=== PATIENT | female | born 1925 | race Caucasian/White ===

== ENCOUNTER 2017-04-24 17:08 | Inpatient (IN) | payer MEDICARE, BC ==
[~2017-04-24] VITALS: Ht 165.1 cm; Wt 61.2 kg
[~2017-04-24 17:08] MED LIST: ASPIRIN E.C. 8181 MG PO; ELIQUIS 5MG PO; GLUCOTROL XL2.5 MG PO; NORCO 325 MG-51 TAB PO; PACERONE200 MG PO; PRAVACHOL 20MG20 MG PO; SYNTHROID0.075 MG/T PO; TOPROL XL 25MG25 MG PO; ZOLOFT 50MG50 MG PO
[2017-04-24 19:00] VITALS: BP 122/58; PULSE 61; TEMP 97.8
[2017-04-24] MEDS ORDERED: CORDARONE200 MG/TAB PO (23:25)
[2017-04-24] MEDS ORDERED: MIRALAX PA17 GM/Dose PO (23:28)
[2017-04-24] MEDS ORDERED: TYLENOL 500MG500 MG PO (23:29)
[2017-04-24] MEDS ORDERED: ULTRAM 50MG TAB50 MG PO (23:30)
[2017-04-25] VITALS (7 sets, daily range): BP systolic 120–127; BP diastolic 43–65; PULSE 62–74; TEMP 97.7–98.9
[2017-04-25 00:37] LABS: BASO % 0.5 % (0.0-2.0); EOS # 0.2 (0.0-0.7); GRAN # 5.1 (1.4-6.5); GRAN % 65.5 % (42.2-75.2); LYMPH # 1.7 (1.2-3.4); LYMPH % 21.2 % (20.0-51.0); MEAN CELL VOLUME 92 fl (80.0-100.0); MEAN CORPUSCULAR HGB CONC 31 g/dl (33.0-37.0); MEAN PLATELET VOLUME 9.7 fl (7.4-10.4); MONO # 0.8 (0.1-0.6); MONO % 10.4 % (1.7-9.3); PLATELET COUNT 155 K/mm3 (130-400); RED BLOOD COUNT 3.52 M/mm3 (4.10-5.30); WHITE BLOOD COUNT 7.9 K/mm3 (4.8-10.8)
[2017-04-25 00:38] LABS: HEMATOCRIT 32.4 % (37.0-47.0); HEMOGLOBIN 10.1 g/dl (12.5-16.0); MEAN CORPUSCULAR HEMOGLOBIN 29 pg (27.0-31.0)
[2017-04-25 00:42] LABS: INR 1.2 (0.8-3.0); PROTHROMBIN TIME 13.3 SECONDS (9.7-12.8)
[2017-04-25 00:48] LABS: ALBUMIN 3.5 gm/dL (3.5-5.0); BILIRUBIN,TOTAL 0.9 mg/dL (0.0-1.0); CALCIUM 8.6 mg/dL (8.4-10.2); CREATININE, serum 0.7 mg/dL (0.52-1.25); TOTAL PROTEIN 5.8 gm/dL (6.4-8.2)
[2017-04-25 00:55] LABS: PRE ALBUMIN 18.1 mg/dL (17.6-36.0)
[2017-04-25 01:18] LABS: COLLECTION METHOD CATHETER
[2017-04-25 01:27] LABS: MUCOUS Present /lpf; PH 5 (5-8); URINE APPEARANCE Cloudy; URINE BACTERIA None Seen /hpf; URINE BILIRUBIN Negative (NEGATIVE); URINE BLOOD 3+ (NEGATIVE); URINE COLOR Yellow; URINE GLUCOSE Negative (NEGATIVE); URINE KETONE Trace (NEGATIVE); URINE LEUKOCYTE ESTERASE Trace (NEGATIVE); URINE PROTEIN(semi-quant) 2+ (NEGATIVE); URINE RBC >50 /hpf; URINE WBC 20-50 /hpf
[2017-04-26] VITALS (11 sets, daily range): BP systolic 110–144; BP diastolic 44–67; PULSE 53–74; TEMP 98–99.4
[2017-04-26 07:04] LABS: BASO % 0.5 % (0.0-2.0); EOS # 0.4 (0.0-0.7); EOS % 5.8 % (0-4.0); GRAN # 3.5 (1.4-6.5); GRAN % 53.5 % (42.2-75.2); MEAN CELL VOLUME 93 fl (80.0-100.0); MEAN CORPUSCULAR HGB CONC 31 g/dl (33.0-37.0); MEAN PLATELET VOLUME 11.6 fl (7.4-10.4); MONO # 0.6 (0.1-0.6); MONO % 9.7 % (1.7-9.3); PLATELET COUNT 59 K/mm3 (130-400); WHITE BLOOD COUNT 6.5 K/mm3 (4.8-10.8)
[2017-04-26 07:06] LABS: HEMATOCRIT 28.8 % (37.0-47.0); MEAN CORPUSCULAR HEMOGLOBIN 29 pg (27.0-31.0)
[2017-04-26 07:16] LABS: CALCIUM 8.3 mg/dL (8.4-10.2); CREATININE, serum 0.63 mg/dL (0.52-1.25); POTASSIUM 3.7 mmol/L (3.4-5.0)
[2017-04-26 18:52] LABS: MEAN CELL VOLUME 95 fl (80.0-100.0); MEAN CORPUSCULAR HGB CONC 31 g/dl (33.0-37.0); MEAN PLATELET VOLUME 11.4 fl (7.4-10.4); PLATELET COUNT 114 K/mm3 (130-400); RED BLOOD COUNT 2.76 M/mm3 (4.10-5.30); WHITE BLOOD COUNT 11.1 K/mm3 (4.8-10.8)
[2017-04-26 18:54] LABS: HEMATOCRIT 26.1 % (37.0-47.0); HEMOGLOBIN 8.1 g/dl (12.5-16.0); MEAN CORPUSCULAR HEMOGLOBIN 29 pg (27.0-31.0)
[2017-04-27] VITALS (102 sets, daily range): BP systolic 127–177; BP diastolic 35–81; PULSE 51–107; TEMP 97.4–103; O2SAT 92–99
[2017-04-27 01:02] LABS: MEAN CELL VOLUME 92 fl (80.0-100.0); MEAN CORPUSCULAR HGB CONC 32 g/dl (33.0-37.0); MEAN PLATELET VOLUME 10.5 fl (7.4-10.4); PLATELET COUNT 166 K/mm3 (130-400); RED BLOOD COUNT 2.84 M/mm3 (4.10-5.30); WHITE BLOOD COUNT 8.5 K/mm3 (4.8-10.8)
[2017-04-27 01:03] LABS: HEMATOCRIT 26.1 % (37.0-47.0); HEMOGLOBIN 8.3 g/dl (12.5-16.0); MEAN CORPUSCULAR HEMOGLOBIN 29 pg (27.0-31.0)
[2017-04-27 06:23] LABS: BASO % 0.3 % (0.0-2.0); EOS # 0.2 (0.0-0.7); EOS % 2.4 % (0-4.0); GRAN # 6.4 (1.4-6.5); GRAN % 73.3 % (42.2-75.2); LYMPH # 1.4 (1.2-3.4); MEAN CELL VOLUME 93 fl (80.0-100.0); MEAN CORPUSCULAR HGB CONC 31 g/dl (33.0-37.0); MEAN PLATELET VOLUME 10.7 fl (7.4-10.4); MONO # 0.7 (0.1-0.6); MONO % 7.4 % (1.7-9.3); RED BLOOD COUNT 2.53 M/mm3 (4.10-5.30); WHITE BLOOD COUNT 8.8 K/mm3 (4.8-10.8)
[2017-04-27 06:27] LABS: HEMATOCRIT 23.6 % (37.0-47.0); HEMOGLOBIN 7.3 g/dl (12.5-16.0); MEAN CORPUSCULAR HEMOGLOBIN 29 pg (27.0-31.0)
[2017-04-27 06:39] LABS: CALCIUM 8.5 mg/dL (8.4-10.2); CREATININE, serum 0.62 mg/dL (0.52-1.25); POTASSIUM 3.5 mmol/L (3.4-5.0)
[2017-04-27 09:13] LABS: PLATELET COUNT 202 K/mm3 (130-400)
[2017-04-27 13:24] LABS: MEAN CELL VOLUME 93 fl (80.0-100.0); MEAN CORPUSCULAR HGB CONC 32 g/dl (33.0-37.0); MEAN PLATELET VOLUME 10.9 fl (7.4-10.4); PLATELET COUNT 147 K/mm3 (130-400); RED BLOOD COUNT 2.71 M/mm3 (4.10-5.30); WHITE BLOOD COUNT 7.4 K/mm3 (4.8-10.8)
[2017-04-27 13:27] LABS: HEMATOCRIT 25.2 % (37.0-47.0); MEAN CORPUSCULAR HEMOGLOBIN 30 pg (27.0-31.0)
[2017-04-27 20:38] LABS: BASO % 0.4 % (0.0-2.0); EOS # 0.1 (0.0-0.7); EOS % 0.9 % (0-4.0); GRAN # 7.7 (1.4-6.5); GRAN % 75.3 % (42.2-75.2); LYMPH # 1.3 (1.2-3.4); LYMPH % 13.1 % (20.0-51.0); MEAN CELL VOLUME 92 fl (80.0-100.0); MEAN CORPUSCULAR HGB CONC 32 g/dl (33.0-37.0); MEAN PLATELET VOLUME 10.8 fl (7.4-10.4); MONO % 9.9 % (1.7-9.3); WHITE BLOOD COUNT 10.2 K/mm3 (4.8-10.8)
[2017-04-27 20:41] LABS: HEMATOCRIT 35.7 % (37.0-47.0); HEMOGLOBIN 11.3 g/dl (12.5-16.0); MEAN CORPUSCULAR HEMOGLOBIN 29 pg (27.0-31.0); PLATELET COUNT 253 K/mm3 (130-400)
[2017-04-27 20:44] LABS: ARTERIAL BLD GAS O2 SATURATION 90.3 % (92-100); ARTERIAL BLD GAS TCO2 CT 22.7; ARTERIAL BLOOD GAS BASE EXCESS -1.8 (-2-2); ARTERIAL BLOOD GAS HCO3 21.7 meq/L (22-26); ARTERIAL BLOOD GAS pH 7.44 (7.35-7.45); OXYHEMOGLOBIN 89.1 %
[2017-04-27 20:45] LABS: ALLEN TEST YES; ALLENS TEST RESULT PASS; ATS? YES
[2017-04-27 21:10] LABS: INR 1.2 (0.8-3.0); PROTHROMBIN TIME 13.4 SECONDS (9.7-12.8)
[2017-04-27 22:07] LABS: ALBUMIN 3.3 gm/dL (3.5-5.0); BILIRUBIN,TOTAL 1.4 mg/dL (0.0-1.0); CALCIUM 8.2 mg/dL (8.4-10.2); CREATININE, serum 0.68 mg/dL (0.52-1.25); POTASSIUM 3.9 mmol/L (3.4-5.0); TOTAL PROTEIN 6.1 gm/dL (6.4-8.2)
[2017-04-27 22:19] LABS: BILIRUBIN UNCONJUGATED 0.9 mg/dL (0.0-1.1); BILIRUBIN,DIRECT 0.5 mg/dL (0.0-0.4)
[2017-04-27 22:59] LABS: ALLEN TEST YES; ALLENS TEST RESULT PASS; ARTERIAL BLD GAS O2 SATURATION 95.6 % (92-100); ARTERIAL BLD GAS TCO2 CT 24.2; ARTERIAL BLOOD GAS BASE EXCESS -0.6 (-2-2); ARTERIAL BLOOD GAS HCO3 23.1 meq/L (22-26); ARTERIAL BLOOD GAS PO2 80.5 mmHg (80-100); ARTERIAL BLOOD GAS pH 7.44 (7.35-7.45); ATS? YES; OXYHEMOGLOBIN 94.5 %
[2017-04-28] VITALS (509 sets, daily range): BP systolic 108–142; BP diastolic 38–58; PULSE 62–70; TEMP 98–99; O2SAT 73–99
[2017-04-28 03:31] LABS: COLLECTION METHOD CATHETER
[2017-04-28 03:42] LABS: MUCOUS Present /lpf; PH 5 (5-8); SQUAMOUS EPITHELIAL None Seen /hpf; URINE APPEARANCE Clear; URINE BACTERIA None Seen /hpf; URINE BILIRUBIN Negative (NEGATIVE); URINE BLOOD 2+ (NEGATIVE); URINE COLOR Yellow; URINE GLUCOSE 1+ (NEGATIVE); URINE KETONE 1+ (NEGATIVE); URINE LEUKOCYTE ESTERASE Negative (NEGATIVE); URINE PROTEIN(semi-quant) 1+ (NEGATIVE); URINE UROBILINOGEN Negative (NEGATIVE); URINE WBC 0-2 /hpf
[2017-04-28 06:12] LABS: BASO % 0.2 % (0.0-2.0); GRAN # 7.2 (1.4-6.5); GRAN % 78.1 % (42.2-75.2); LYMPH # 0.9 (1.2-3.4); MEAN CELL VOLUME 88 fl (80.0-100.0); MEAN CORPUSCULAR HGB CONC 32 g/dl (33.0-37.0); MEAN PLATELET VOLUME 11.4 fl (7.4-10.4); MONO # 1.1 (0.1-0.6); MONO % 11.4 % (1.7-9.3); RED BLOOD COUNT 3.72 M/mm3 (4.10-5.30); WHITE BLOOD COUNT 9.3 K/mm3 (4.8-10.8)
[2017-04-28 06:14] LABS: HEMATOCRIT 32.9 % (37.0-47.0); HEMOGLOBIN 10.6 g/dl (12.5-16.0); MEAN CORPUSCULAR HEMOGLOBIN 28 pg (27.0-31.0)
[2017-04-28 06:20] LABS: PLATELET COUNT 143 K/mm3 (130-400)
[2017-04-28 11:58] LABS: COLLECTION METHOD CATHETER
[2017-04-28 12:16] LABS: MUCOUS Present /lpf; PH 5 (5-8); URINE APPEARANCE Hazy; URINE BACTERIA Rare /hpf; URINE BILIRUBIN Negative (NEGATIVE); URINE BLOOD 2+ (NEGATIVE); URINE COLOR Amber; URINE GLUCOSE 1+ (NEGATIVE); URINE KETONE 1+ (NEGATIVE); URINE LEUKOCYTE ESTERASE Negative (NEGATIVE); URINE PROTEIN(semi-quant) 2+ (NEGATIVE); URINE RBC 20-50 /hpf
[2017-04-29 02:05] VITALS: BP 112/59; PULSE 91; TEMP 97.9
[2017-04-29 05:58] VITALS: BP 130/41; PULSE 71; TEMP 97.6
[2017-04-29 06:25] LABS: HEMATOCRIT 31.6 % (37.0-47.0); HEMOGLOBIN 9.9 g/dl (12.5-16.0)
[2017-04-29 09:45] VITALS: BP 118/52; PULSE 72; TEMP 97.7
[2017-04-29 13:46] VITALS: BP 102/58; PULSE 58; TEMP 98.1
[2017-04-29 17:34] VITALS: BP 112/48; PULSE 58; TEMP 97.4
[2017-04-29 21:44] VITALS: BP 130/50; PULSE 59; TEMP 97.8
[2017-04-30 02:39] LABS: COLLECTION METHOD CATHETER
[2017-04-30 02:49] LABS: MUCOUS Present /lpf; PH 6 (5-8); SQUAMOUS EPITHELIAL 0-2 /hpf; URINE APPEARANCE Clear; URINE BACTERIA None Seen /hpf; URINE BILIRUBIN Negative (NEGATIVE); URINE BLOOD Negative (NEGATIVE); URINE COLOR Yellow; URINE GLUCOSE 3+ (NEGATIVE); URINE KETONE Negative (NEGATIVE); URINE LEUKOCYTE ESTERASE Negative (NEGATIVE); URINE PROTEIN(semi-quant) 1+ (NEGATIVE)
[2017-04-30 02:52] VITALS: BP 145/43; PULSE 62; TEMP 98.8
[2017-04-30 05:52] VITALS: BP 158/83; PULSE 61; TEMP 98.2
[2017-04-30 06:47] LABS: BASO % 0.3 % (0.0-2.0); EOS # 0.2 (0.0-0.7); EOS % 3.2 % (0-4.0); GRAN # 5.4 (1.4-6.5); GRAN % 72.2 % (42.2-75.2); LYMPH # 1.1 (1.2-3.4); LYMPH % 15.3 % (20.0-51.0); MEAN CELL VOLUME 91 fl (80.0-100.0); MEAN CORPUSCULAR HGB CONC 31 g/dl (33.0-37.0); MEAN PLATELET VOLUME 11.2 fl (7.4-10.4); MONO # 0.6 (0.1-0.6); MONO % 8.6 % (1.7-9.3); PLATELET COUNT 104 K/mm3 (130-400); RED BLOOD COUNT 3.22 M/mm3 (4.10-5.30); WHITE BLOOD COUNT 7.4 K/mm3 (4.8-10.8)
[2017-04-30 06:48] LABS: HEMATOCRIT 29.2 % (37.0-47.0); HEMOGLOBIN 9.1 g/dl (12.5-16.0); MEAN CORPUSCULAR HEMOGLOBIN 28 pg (27.0-31.0)
[2017-04-30 09:26] VITALS: BP 123/87; PULSE 109; TEMP 97.4
[2017-04-30 12:39] VITALS: BP 121/52; PULSE 104; TEMP 98.7
[2017-04-30 18:22] VITALS: BP 124/56; PULSE 65; TEMP 98
[2017-04-30 22:25] VITALS: BP 130/75; PULSE 76; TEMP 99
[2017-05-01 02:27] VITALS: BP 135/47; PULSE 57; TEMP 98.2
[2017-05-01] MEDS ORDERED: NORCO 325 MG-7.1 TAB PO (05:53)
[2017-05-01 06:13] VITALS: BP 126/63; PULSE 60; TEMP 98.2
[2017-05-01] MEDS ORDERED: FERROUS SU325 MG/TAB PO (09:07)
[2017-05-01 09:51] VITALS: BP 135/53; PULSE 67; TEMP 97.6
[2017-05-01 10:45] LABS: HEMOGLOBIN 10.1 g/dl (12.5-16.0)
[2017-05-01 11:38] VITALS: BP 135/53; PULSE 67; TEMP 97.6
== END 2017-05-01 11:15 | disposition swing bed (61) | DRG 481 ==
LOC: SURG 17:08 → ICU 04-27 21:17 → SURG 04-28 12:35
PROVIDERS: Family Medicine; Internal Medicine; Nurse Anesthetist, Certified Registered; Nurse Practitioner Family; Orthopaedic Surgery; Physician Assistant
PROC: 0QSB04Z Reposition Right Lower Femur with Internal Fixation Device, Open Approach (ICD-10-PCS; principal; 2017-04-27 12:30)
DX: S72.451A Displaced supracondylar fracture without intracondylar extension of lower end of right femur, initial encounter for closed fracture (principal); M97.01XA Periprosthetic fracture around internal prosthetic right hip joint, initial encounter; D62 Acute posthemorrhagic anemia; I48.92 Unspecified atrial flutter; W18.30XA Fall on same level, unspecified, initial encounter; E11.65 Type 2 diabetes mellitus with hyperglycemia; I48.91 Unspecified atrial fibrillation; D69.6 Thrombocytopenia, unspecified; R50.84 Febrile nonhemolytic transfusion reaction
CPT/HCPCS: 99232-AI; 99233-AI; A9284; C1713; C1776; J0690; J0696; J1200; J1815; J1940; J2270; J2405; J3010; J7030; J7042; P9016; P9035